=== PATIENT | male | born 1955 | race Two or more races ===

== ENCOUNTER → 2023-06-06 | Outpatient (REF) | payer MEDICARE ==
[~2023-06-06] MED LIST: ACET1TAB55 PO; AMLO1TAB24 PO; ASPI81TA26 PO; BUPR150T12 PO; FARX1TAB5 PO; FENO145T7 PO; FENO1CAP16 PO; FLOM0.4C39 PO; INVE1.5T PO; JANU100T PO; JANU25TA PO; LISI20TA33 PO; MULT-4 PO; QUIN20TA48 PO
[2023-06-06 19:06] LABS: APPEARANCE, URINE CLEAR (CLEAR); BACTERIA, URINE AUTO NEGATIVE (NEGATIVE); BILIRUBIN, URINE AUTO NEGATIVE (NEGATIVE); BLOOD, URINE BLOOD NEGATIVE (NEGATIVE); COLOR, URINE YELLOW (YELLOW); GLUCOSE, URINE (UA) AUTO 3+ mg/dL (NEGATIVE); KETONE, URINE AUTO NEGATIVE (NEGATIVE); LEUKOCYTE ESTERASE, URINE AUTO NEGATIVE (NEGATIVE); MUCUS, URINE SMALL (NEGATIVE); NITRITE, URINE AUTO NEGATIVE (NEGATIVE); PROTEIN, URINE AUTO NEGATIVE (NEGATIVE); RBC, URINE AUTO 0 /HPF (0-3); SPECIFIC GRAVITY URINE AUTO 1.025 (1.002-1.035); SQUAMOUS EPITHELIAL CELL UR AU 0 /HPF (0-6); UROBILINOGEN, URINE AUTO 0.2 mg/dL (0.0-2.0); WBC, URINE AUTO 1 /HPF (0-3)
[2023-06-07 02:39] LABS: HEMOGLOBIN A1c 8.1 % (4.0-6.0)
[2023-06-07 03:59] LABS: BILIRUBIN,TOTAL 0.4 MG/DL (0.3-1.2); CALCIUM LEVEL 9.5 MG/DL (8.3-10.6); CHOLESTEROL RISK RATIO 3.11 (<5); CREATININE FOR GFR 1.8 MG/DL (0.70-1.30); FREE T4 1.43 NG/DL (0.89-1.76); GLOMERULAR FILTRATION RATE 40.3 (>49); HDL CHOLESTEROL 41.4 MG/DL (>40); NON-HDL-C 87.6 MG/DL; POTASSIUM SERUM 4.2 MMOL/L (3.5-5.1); THYROID STIMULATING HORMONE 1.118 uIU/ML (0.55-4.78); TOTAL PROTEIN 6.8 G/DL (5.7-8.2)
== END ==
LOC: M SFHCCLAY 10:11
PROVIDERS: ATTEND Nurse Practitioner Family
DX: E11.9 Type 2 diabetes mellitus without complications (principal); I10 Essential (primary) hypertension; E78.5 Hyperlipidemia, unspecified; N40.1 Benign prostatic hyperplasia with lower urinary tract symptoms; F32.A Depression, unspecified
CPT/HCPCS: 80053; 80061; 81001; 83036; 84439; 84443; G0103

== ENCOUNTER → 2023-08-04 | Outpatient (CLI) | payer MEDICARE ==
[~2023-08-04] MED LIST changes: +PROHANCE 279.3MG/ML 15ML VIAL As Ordered ONE; +PROHANCE 279.3MG/ML 5ML VIAL As Ordered ONE
== END ==
LOC: M RAD 09:07
PROVIDERS: ATTEND Physician Assistant
DX: R97.20 Elevated prostate specific antigen [PSA] (principal); N42.89 Other specified disorders of prostate
CPT/HCPCS: 72197; A9576

== ENCOUNTER → 2023-08-16 | Outpatient (REF) | payer MEDICARE ==
[~2023-08-16] MED LIST changes: -PROHANCE 279.3MG/ML 15ML VIAL As Ordered ONE; -PROHANCE 279.3MG/ML 5ML VIAL As Ordered ONE
== END ==
LOC: M SMT PRO 12:37
PROVIDERS: ATTEND Urology
DX: C61 Malignant neoplasm of prostate (principal); Z79.899 Other long term (current) drug therapy; Z79.84 Long term (current) use of oral hypoglycemic drugs; Z88.1 Allergy status to other antibiotic agents; Z88.2 Allergy status to sulfonamides

== ENCOUNTER → 2023-10-03 | Outpatient (REF) | payer MEDICARE ==
[2023-10-03 18:20] LABS: HEMOGLOBIN A1c 9.1 % (4.0-6.0)
[2023-10-03 18:23] LABS: ALBUMIN 3.9 G/DL (3.2-5.2); ALKALINE PHOSPHATASE 77 U/L (46-116); ALT/SGPT 13 U/L (7.0-40); AST/SGOT < 8 U/L (<34); BILIRUBIN,TOTAL 0.4 MG/DL (0.3-1.2); BLOOD UREA NITROGEN 25 MG/DL (9-23); CARBON DIOXIDE LEVEL 29 MMOL/L (20-31); CHLORIDE LEVEL 102 MMOL/L (98-107); CREATININE FOR GFR 1.61 MG/DL (0.70-1.30); GLOMERULAR FILTRATION RATE 45.7 (>49); GLUCOSE, FASTING 201 MG/DL (74-106); POTASSIUM SERUM 4.7 MMOL/L (3.5-5.1); SODIUM LEVEL 138 MMOL/L (136-145); TOTAL PROTEIN 6.7 G/DL (5.7-8.2)
== END ==
LOC: M SFHCCLAY 14:24
PROVIDERS: ATTEND Nurse Practitioner Family
DX: I10 Essential (primary) hypertension (principal); N18.9 Chronic kidney disease, unspecified; E11.9 Type 2 diabetes mellitus without complications; N40.1 Benign prostatic hyperplasia with lower urinary tract symptoms

== ENCOUNTER → 2023-11-04 | Outpatient (CLI) | payer MEDICARE | LOC: M PLAIMG 09:53 | PROVIDERS: ATTEND Nurse Practitioner Family | DX: R07.9 Chest pain, unspecified (principal) ==

== ENCOUNTER → 2023-12-21 | Outpatient (CLI) | payer MEDICARE | LOC: M CLY 09:33 | PROVIDERS: ATTEND Nurse Practitioner Family | DX: R07.9 Chest pain, unspecified (principal) ==

== ENCOUNTER → 2023-12-21 | Outpatient (REF) | payer MEDICARE ==
[2023-12-21 17:20] LABS: BASO # 0.1 10^3/uL (0.0-0.2); EOS # 0.6 10^3/uL (0.0-0.5); EOS % 6.3 % (0.0-3.0); HEMATOCRIT 51.2 % (42.0-52.0); HEMOGLOBIN 17.7 g/dl (13.5-17.5); LYMPH % 20.8 % (24.0-44.0); MEAN CORPUSCULAR HEMOGLOBIN 30.2 pg (27.0-33.0); MEAN CORPUSCULAR HGB CONC 34.6 g/dl (32.0-36.5); MEAN CORPUSCULAR VOLUME 87.2 fl (80.0-96.0); MONO # 0.9 10^3/uL (0.0-0.8); MONO % 9.1 % (2.0-8.0); NEUTROPHILS # 5.9 10^3/uL (1.5-8.5); NEUTROPHILS % 62.5 % (36.0-66.0); PLATELET COUNT, AUTOMATED 271 10^3/uL (150-450); RED BLOOD COUNT 5.87 10^6/uL (4.30-6.10); WHITE BLOOD COUNT 9.4 10^3/uL (4.0-10.0)
[2023-12-21 17:28] LABS: HEMOGLOBIN A1c 7.9 % (4.0-6.0)
[2023-12-21 17:45] LABS: PROSTATIC SPECIFIC AG MONITOR 11.18 NG/ML (< 4.00)
[2023-12-21 17:48] LABS: ALBUMIN 3.7 G/DL (3.2-5.2); ALKALINE PHOSPHATASE 116 U/L (46-116); ALT/SGPT 14 U/L (7.0-40); AST/SGOT < 8 U/L (<34); BILIRUBIN,TOTAL 0.8 MG/DL (0.3-1.2); BLOOD UREA NITROGEN 21 MG/DL (9-23); CARBON DIOXIDE LEVEL 28 MMOL/L (20-31); CHLORIDE LEVEL 106 MMOL/L (98-107); CHOLESTEROL LEVEL 107 MG/DL (<200); CHOLESTEROL RISK RATIO 2.65 (<5); FREE T4 1.42 NG/DL (0.89-1.76); GLOMERULAR FILTRATION RATE 53.7 (>49); GLUCOSE, FASTING 190 MG/DL (74-106); HDL CHOLESTEROL 40.3 MG/DL (>40); LDL CHOLESTEROL 35.9 MG/DL (<100); MAGNESIUM LEVEL 1.8 MG/DL (1.8-2.4); NON-HDL-C 66.7 MG/DL; POTASSIUM SERUM 5.3 MMOL/L (3.5-5.1); SODIUM LEVEL 138 MMOL/L (136-145); TOTAL PROTEIN 6.9 G/DL (5.7-8.2); TRIGLYCERIDES LEVEL 154 MG/DL (<150)
[2023-12-21 17:49] LABS: THYROID STIMULATING HORMONE 0.927 uIU/ML (0.55-4.78)
== END ==
LOC: M SFHCCLAY 08:59
PROVIDERS: ATTEND Nurse Practitioner Family
DX: C61 Malignant neoplasm of prostate (principal); I12.9 Hypertensive chronic kidney disease with stage 1 through stage 4 chronic kidney disease, or unspecified chronic kidney disease; E11.9 Type 2 diabetes mellitus without complications; N40.1 Benign prostatic hyperplasia with lower urinary tract symptoms; R07.9 Chest pain, unspecified; E78.5 Hyperlipidemia, unspecified; F32.A Depression, unspecified

== ENCOUNTER → 2024-05-04 | Outpatient (REF) | payer MEDICARE ==
[2024-05-04 17:41] LABS: ALBUMIN 3.7 G/DL (3.2-5.2); ALKALINE PHOSPHATASE 85 U/L (46-116); ALT/SGPT 14 U/L (7.0-40); AST/SGOT < 8 U/L (<34); BILIRUBIN,TOTAL 0.4 MG/DL (0.3-1.2); BLOOD UREA NITROGEN 23 MG/DL (9-23); CALCIUM LEVEL 9.4 MG/DL (8.3-10.6); CARBON DIOXIDE LEVEL 25 MMOL/L (20-31); CHLORIDE LEVEL 108 MMOL/L (98-107); CHOLESTEROL LEVEL 120 MG/DL (<200); CHOLESTEROL RISK RATIO 3.25 (<5); CREATININE FOR GFR 1.68 MG/DL (0.70-1.30); GLOMERULAR FILTRATION RATE 43.5 (>49); GLUCOSE, FASTING 239 MG/DL (74-106); HDL CHOLESTEROL 36.9 MG/DL (>40); LDL CHOLESTEROL 33.5 MG/DL (<100); NON-HDL-C 83.1 MG/DL; POTASSIUM SERUM 4.3 MMOL/L (3.5-5.1); SODIUM LEVEL 138 MMOL/L (136-145); TOTAL PROTEIN 6.6 G/DL (5.7-8.2); TRIGLYCERIDES LEVEL 248 MG/DL (<150)
[2024-05-04 18:08] LABS: HEMOGLOBIN A1c 7.9 % (4.0-6.0)
== END ==
LOC: M SFHCCLAY 09:32
PROVIDERS: ATTEND Nurse Practitioner Family
DX: C61 Malignant neoplasm of prostate (principal); I12.9 Hypertensive chronic kidney disease with stage 1 through stage 4 chronic kidney disease, or unspecified chronic kidney disease; E11.9 Type 2 diabetes mellitus without complications; N40.1 Benign prostatic hyperplasia with lower urinary tract symptoms; R07.9 Chest pain, unspecified; E78.5 Hyperlipidemia, unspecified; F32.A Depression, unspecified

== ENCOUNTER → 2024-06-18 | Outpatient (REF) | payer MEDICARE | LOC: M SFHCCLAY 14:05 | PROVIDERS: ATTEND Urology | DX: C61 Malignant neoplasm of prostate (principal); M79.671 Pain in right foot ==

== ENCOUNTER → 2024-06-18 | Outpatient (CLI) | payer MEDICARE | LOC: M CLY 14:08 | PROVIDERS: ATTEND Nurse Practitioner Family | DX: M79.671 Pain in right foot (principal) ==

== ENCOUNTER → 2024-10-30 | Outpatient (REF) | payer MEDICARE ==
[2024-10-30 17:51] LABS: AMORPHOUS SEDIMENT SMALL (NEGATIVE); APPEARANCE, URINE HAZY (CLEAR); BACTERIA, URINE AUTO 3+ (NEGATIVE); BILIRUBIN, URINE AUTO NEGATIVE (NEGATIVE); BLOOD, URINE BLOOD 1+ (NEGATIVE); COLOR, URINE YELLOW (YELLOW); GLUCOSE, URINE (UA) AUTO 3+ mg/dL (NEGATIVE); KETONE, URINE AUTO NEGATIVE (NEGATIVE); LEUKOCYTE ESTERASE, URINE AUTO 2+ (NEGATIVE); MUCUS, URINE SMALL (NEGATIVE); NITRITE, URINE AUTO NEGATIVE (NEGATIVE); PROTEIN, URINE AUTO NEGATIVE (NEGATIVE); RBC, URINE AUTO 4 /HPF (0-3); SPECIFIC GRAVITY URINE AUTO 1.026 (1.002-1.035); SQUAMOUS EPITHELIAL CELL UR AU 0 /HPF (0-6); UROBILINOGEN, URINE AUTO 0.2 mg/dL (0.0-2.0); WBC, URINE AUTO 129 /HPF (0-3)
== END ==
LOC: M SFHCCLAY 15:03
PROVIDERS: ATTEND Physician Assistant
DX: R30.0 Dysuria (principal)

== ENCOUNTER → 2024-11-02 | Outpatient (REF) | payer MEDICARE ==
[2024-11-02 17:53] LABS: ALBUMIN 3.1 G/DL (3.2-5.2); ALKALINE PHOSPHATASE 78 U/L (40-129); ALT/SGPT 11 U/L (7.0-40); AST/SGOT < 8 U/L (<34); BILIRUBIN,TOTAL 0.3 MG/DL (0.3-1.2); BLOOD UREA NITROGEN 23 MG/DL (9-23); CALCIUM LEVEL 8.8 MG/DL (8.3-10.6); CARBON DIOXIDE LEVEL 26 MMOL/L (20-31); CHLORIDE LEVEL 103 MMOL/L (98-107); CHOLESTEROL LEVEL 99 MG/DL (<200); CREATININE FOR GFR 1.81 MG/DL (0.70-1.30); GLOMERULAR FILTRATION RATE 39.8 (>49); GLUCOSE, FASTING 244 MG/DL (74-106); HDL CHOLESTEROL 36.6 MG/DL (>40); LDL CHOLESTEROL 24.2 MG/DL (<100); NON-HDL-C 62.4 MG/DL; POTASSIUM SERUM 4.2 MMOL/L (3.5-5.1); PROSTATIC SPECIFIC AG MONITOR 6.89 NG/ML (< 4.00); SODIUM LEVEL 139 MMOL/L (136-145); TOTAL PROTEIN 6.6 G/DL (5.7-8.2); TRIGLYCERIDES LEVEL 191 MG/DL (<150)
[2024-11-02 18:36] LABS: HEMOGLOBIN A1c 7.6 % (4.0-6.0)
== END ==
LOC: M SFHCCLAY 11:30
PROVIDERS: ATTEND Nurse Practitioner Family
DX: C61 Malignant neoplasm of prostate (principal); E11.9 Type 2 diabetes mellitus without complications; N40.1 Benign prostatic hyperplasia with lower urinary tract symptoms; R07.9 Chest pain, unspecified; E78.5 Hyperlipidemia, unspecified; F32.A Depression, unspecified; N30.00 Acute cystitis without hematuria; I12.9 Hypertensive chronic kidney disease with stage 1 through stage 4 chronic kidney disease, or unspecified chronic kidney disease

== ENCOUNTER → 2024-11-12 | Outpatient (REF) | payer MEDICARE ==
[2024-11-12 12:26] LABS: APPEARANCE, URINE CLEAR (CLEAR); BACTERIA, URINE AUTO NEGATIVE (NEGATIVE); BILIRUBIN, URINE AUTO NEGATIVE (NEGATIVE); BLOOD, URINE BLOOD NEGATIVE (NEGATIVE); COLOR, URINE YELLOW (YELLOW); GLUCOSE, URINE (UA) AUTO 3+ mg/dL (NEGATIVE); KETONE, URINE AUTO NEGATIVE (NEGATIVE); LEUKOCYTE ESTERASE, URINE AUTO NEGATIVE (NEGATIVE); MUCUS, URINE SMALL (NEGATIVE); NITRITE, URINE AUTO NEGATIVE (NEGATIVE); PROTEIN, URINE AUTO NEGATIVE (NEGATIVE); RBC, URINE AUTO 1 /HPF (0-3); SPECIFIC GRAVITY URINE AUTO 1.023 (1.002-1.035); SQUAMOUS EPITHELIAL CELL UR AU 0 /HPF (0-6); UROBILINOGEN, URINE AUTO 0.2 mg/dL (0.0-2.0); WBC, URINE AUTO 8 /HPF (0-3)
== END ==
LOC: M SFHCCLAY 11:55
PROVIDERS: ATTEND Nurse Practitioner Family
DX: N30.00 Acute cystitis without hematuria (principal)

== ENCOUNTER → 2025-06-10 | Outpatient (REF) | payer MEDICARE ==
[~2025-06-10] MED LIST changes: -FLOM0.4C39 PO; +TAMS-18 PO
[2025-06-10 17:51] LABS: ESTIMATED AVERAGE GLUCOSE 217.0 MG/DL (60-110)
[2025-06-10 17:53] LABS: ALT/SGPT 11.0 U/L (7.0-40); AST/SGOT 12.0 U/L (<34); CALCIUM LEVEL 9.6 MG/DL (8.3-10.6); CARBON DIOXIDE LEVEL 27.0 MMOL/L (20-31); CHLORIDE LEVEL 104.0 MMOL/L (98-107); CHOLESTEROL LEVEL 148.0 MG/DL (<200); CHOLESTEROL RISK RATIO 3.44 (<5); CREATININE FOR GFR 1.5 MG/DL (0.70-1.30); GLOMERULAR FILTRATION RATE 50.1 (>49); LDL CHOLESTEROL 64.8 MG/DL (<100); NON-HDL-C 105.0 MG/DL; POTASSIUM SERUM 5.5 MMOL/L (3.5-5.1); PROSTATIC SPECIFIC AG MONITOR 2.96 NG/ML (< 4.00); SODIUM LEVEL 138.0 MMOL/L (136-145); TRIGLYCERIDES LEVEL 201.0 MG/DL (<150)
== END ==
LOC: M SFHCCLAY 09:43
PROVIDERS: ATTEND Nurse Practitioner Family
DX: C61 Malignant neoplasm of prostate (principal); I10 Essential (primary) hypertension; N18.9 Chronic kidney disease, unspecified; E11.9 Type 2 diabetes mellitus without complications; N40.1 Benign prostatic hyperplasia with lower urinary tract symptoms; E78.5 Hyperlipidemia, unspecified; F32.A Depression, unspecified; E66.01 Morbid (severe) obesity due to excess calories; N39.0 Urinary tract infection, site not specified